=== PATIENT | female | born 1935 | race Caucasian/White ===

== ENCOUNTER → 2024-08-03 | Outpatient (CLI) | payer MEDICARE, OTHER ==
[~2024-08-03] VITALS: Ht 152.4 cm; Wt 59.5 kg
[~2024-08-03] MED LIST: ACET325S20 PR; ALBU18HF12 IH; AMLO-258 PO; ASPI-1450 PO; ATOR40TA28 PO; DOXY-354 PO; FURO20TA5 PO; ISOS60TA77 PO; LOSA-382 PO; METO25XL PO; PARO-38 PO; PRED-549 PO; SENN-376 PO
[2024-08-03 10:37] VITALS: BP 136/64; PULSE 71; RESP 16; TEMP 97.5; O2SAT 92
== END | disposition home or self-care (01) ==
LOC: SRCNTR 10:22
PROVIDERS: ATTEND Internal Medicine
DX: I48.91 Unspecified atrial fibrillation (principal); F03.90 Unspecified dementia, unspecified severity, without behavioral disturbance, psychotic disturbance, mood disturbance, and anxiety; I10 Essential (primary) hypertension; I25.10 Atherosclerotic heart disease of native coronary artery without angina pectoris; I73.9 Peripheral vascular disease, unspecified; J47.9 Bronchiectasis, uncomplicated; J84.10 Pulmonary fibrosis, unspecified; R09.02 Hypoxemia; Z79.52 Long term (current) use of systemic steroids; Z79.82 Long term (current) use of aspirin; Z79.899 Other long term (current) drug therapy; Z87.891 Personal history of nicotine dependence; Z95.1 Presence of aortocoronary bypass graft; Z99.81 Dependence on supplemental oxygen
CPT/HCPCS: G0463; Z7500